=== PATIENT | female | born 1995 | race Caucasian/White ===

== ENCOUNTER 2018-01-11 15:11 | Emergency (ER) | payer OTHER ==
[~2018-01-11] VITALS: Ht 162.6 cm; Wt 50.8 kg
[2018-01-11] MEDS ORDERED: CIPRO500 M1 PO (15:25)
[2018-01-11] MEDS ORDERED: ZANTAC 150MG T150 MG PO ×2 (15:25→15:26)
[2018-01-11] MEDS ORDERED: BENTYL 10 MG CA10 M1 PO (15:25)
[2018-01-11] MEDS ORDERED: FLAGYL500 MG PO (15:26)
[2018-01-11 15:32] LABS: HEMATOCRIT 39.6 % (37.0-47.0); MCH 31.5 pg (26.0-34.0); MCHC 35.4 g/dL (28.0-37.0); MPV 7.8 fl. (7.2-11.1); NUCLEATED RBCS 0 /100WBC; PLATELET COUNT* 244 thou/uL (150-400); RBC 4.45 mil/uL (4.20-5.00); RDW-CV 12.9 % (10.5-14.5); WBC 7.2 thou/uL (4.0-11.0)
[2018-01-11 15:40] LABS: POTASSIUM 3.4 mmol/L (3.5-5.1)
[2018-01-11 15:44] LABS: TOTAL BILIRUBIN 2.2 mg/dL (<0.1-1.0)
[2018-01-11 15:46] LABS: URINE BILIRUBIN NEGATIVE (Negative); URINE BLOOD NEGATIVE (Negative); URINE CLARITY CLEAR; URINE COLOR YELLOW; URINE GLUCOSE-RANDOM NEGATIVE (Negative); URINE KETONES 2+ (Negative); URINE LEUKOCYTES-REFLEX NEGATIVE (Negative); URINE NITRITE-REFLEX NEGATIVE (Negative); URINE PROTEIN NEGATIVE (Negative); URINE UROBILINOGEN 0.2 E.U./dl (0.2-1.0)
[2018-01-11 15:52] LABS: ABSOLUTE LYMPHOCYTES 0.9 thou/uL (0.8-5.3); ABSOLUTE MONOCYTES 0.3 thou/uL (0.0-1.2); CLUMPED PLTS OCCASIONAL; PLATELET ESTIMATE ADEQUATE
[2018-01-11 15:53] LABS: AMP/METHAMP Negative (Negative); BARBITURATES Negative (Negative); BENZODIAZEPINES Negative (Negative); COCAINE Negative (Negative); METHADONE Negative (Negative); OPIATES Negative (Negative); PCP Negative (Negative); THC POSITIVE (Negative)
[2018-01-11] MEDS ORDERED: PHENERGAN12.5 M2 RECTAL (17:43)
[2018-01-11] MEDS ORDERED: ZOFRAN ODT4 MG PO (17:43)
[2018-01-11 18:08] VITALS: BP 110/72
== END 2018-01-11 18:08 | disposition home or self-care (01) ==
LOC: M.ERS 15:11
PROVIDERS: Physician Assistant
DX: R10.30 Lower abdominal pain, unspecified (principal); R11.10 Vomiting, unspecified; F41.9 Anxiety disorder, unspecified; K21.9 Gastro-esophageal reflux disease without esophagitis